=== PATIENT | male | born 1970 | race Caucasian/White ===

== ENCOUNTER → 2023-10-15 07:06 | Outpatient (REF) | payer BC, SELFPAY | LOC: HWRCS 07:06 | PROVIDERS: ATTENDING PHYSICIAN Internal Medicine Cardiovascular Disease; FAMILY PHYSICIAN Family Medicine | DX: E78.00 Pure hypercholesterolemia, unspecified (principal); Z82.49 Family history of ischemic heart disease and other diseases of the circulatory system; I45.10 Unspecified right bundle-branch block | CPT/HCPCS: 93306 ==